=== PATIENT | male | born 1965 | race Caucasian/White ===

== ENCOUNTER 2019-02-08 22:25 | Emergency (ER) | payer BC, OTHER ==
--- NOTE | 2019-02-08 22:42 | Emergency Department Record ---
History of Present Illness - General Chief Complaint: Fall Injury Stated Complaint: FALL Time Seen by Provider: 02/08/19 22:35 Source: Patient - History of Present Illness Initial Comments: Patient was out in his garage backing up when he fell over some equipment. He thinks he may have lost consciousness briefly. He admit to having some beer and marijuana tonight. He is on blood thinners because of a heart attack. He also injured his arm. Complaint: Fall (from standing) - Related Data Home Medications Medication Instructions Recorded Confirmed Last Taken Aspirin 81 mg PO DAILY 02/08/19 02/08/19 02/08/19 Atorvastatin Calcium 80 mg PO QHS 02/08/19 02/08/19 02/08/19 Metoprolol Tartrate 25 mg PO BID 02/08/19 02/08/19 02/08/19 Ranitidine HCl [Zantac] 150 mg PO BID 02/08/19 02/08/19 02/08/19 Ticagrelor [Brilinta] 60 mg PO BID 02/08/19 02/08/19 02/08/19 Allergies Allergy/AdvReac Type Severity Reaction Status Date / Time No Known Drug Allergies Allergy Verified 11/25/15 04:38 Review of Systems Reviewed: No additional complaints except as noted below Constitutional: Reports: As per HPI. Denies: Chills, Fever, Malaise, Night sweats, Weakness, Weight change Eyes: Reports: As per HPI. Denies: Eye discharge, Eye pain, Photophobia, Vision change ENT: Reports: As per HPI. Denies: Congestion, Dental pain, Ear pain, Epistaxis , Hearing loss, Throat pain Respiratory: Reports: As per HPI. Denies: Cough, Dyspnea, Hemoptysis, Stridor, Wheezes Cardiovascular: Reports: As per HPI. Denies: Arrhythmia, Chest pain, Dyspnea on exertion, Edema, Murmurs, Orthopnea, Palpitations, Paroxysmal nocturnal dyspnea, Rheumatic Fever, Syncope Endocrine: Reports: As per HPI. Denies: Fatigue, Heat or cold intolerance, Polydipsia, Polyuria Gastrointestinal: Reports: As per HPI. Denies: Abdominal pain, Constipation, Diarrhea, Hematemesis, Hematochezia, Melena, Nausea, Vomiting Genitourinary: Reports: As per HPI. Denies: Dysuria, Frequency, Hematuria, Incontinence, Retention, Testicular pain, Testicular mass, Urgency Musculoskeletal: Reports: As per HPI. Denies: Arthralgia, Back pain, Gout, Joint swelling, Myalgia, Neck pain Skin: Reports: As per HPI. Denies: Bruising, Change in color, Change in hair/ nails, Lesions, Pruritus, Rash Neurological: Reports: As per HPI. Denies: Abnormal gait, Confusion, Headache, Numbness, Paresthesias, Seizure, Tingling, Tremors, Vertigo, Weakness Psychiatric: Reports: As per HPI. Denies: Anxiety, Auditory hallucinations, Depression, Homicidal thoughts, Suicidal thoughts, Visual hallucinations Hematological/Lymphatic: Reports: As per HPI. Denies: Anemia, Blood Clots, Easy bleeding, Easy bruising, Swollen glands Past Medical History - SOCIAL HISTORY Smoking Status: Current every day smoker - RESPIRATORY Hx Respiratory Disorders: No - CARDIOVASCULAR Hx Cardio Disorders: No - NEURO Hx Neuro Disorders: No - GI Hx GI Disorders: No - Hx Genitourinary Disorders: No - ENDOCRINE Hx Endocrine Disorders: No - MUSCULOSKELETAL Hx Musculoskeletal Disorders: Yes Comment:: herniated discs - PSYCH Hx Psych Problems: No - HEMATOLOGY/ONCOLOGY Hx Hematology/Oncology Disorders: No Family Medical History Hx Heart Disease: Father, Mother *Heart Comment: heart attacks, open heart Physical Exam - General General Appearance: Alert, Oriented x3, Cooperative, No acute distress - Head Head exam: Normal inspection Head exam detail: Abrasion, Contusion (to jaw left side) - Eye Eye exam: Normal appearance, PERRL Pupils: Normal accommodation - ENT ENT exam: Normal exam, Mucous membranes moist, Normal external ear exam, Normal orophraynx, TM's normal bilaterally Ear exam: Normal external inspection. negative: External canal tenderness Nasal Exam: Normal inspection. negative: Discharge, Sinus tenderness Mouth exam: Normal external inspection, Tongue normal Teeth exam: Normal inspection. negative: Dental caries Throat exam: Normal inspection. negative: Tonsillar erythema, Tonsillar exudate - Neck Neck exam: Normal inspection, Full ROM. negative: Lymphadenopathy, Meningismus , Tenderness - Respiratory Respiratory exam: Normal lung sounds bilaterally. negative: Respiratory distress - Cardiovascular Cardiovascular Exam: Regular rate, Normal rhythm, Normal heart sounds - GI/Abdominal GI/Abdominal exam: Soft, Normal bowel sounds. negative: Tenderness - Rectal Rectal exam: Deferred - exam: Deferred - Extremities Extremities exam: Normal inspection, Full ROM, Normal capillary refill, Other ( left forearm tender with bandage over it.). negative: Calf tenderness, Pedal edema, Tenderness - Back Back exam: Reports: Normal inspection, Full ROM. Denies: CVA tenderness (R), CVA tenderness (L), Muscle spasm, Rash noted, Tenderness - Neurological Neurological exam: Alert, CN II-XII intact, Normal gait, Oriented X3, Reflexes normal. negative: Motor sensory deficit - Psychiatric Psychiatric exam: Normal affect, Normal mood - Skin Skin exam: Dry, Intact, Normal color, Warm Course - Reevaluation(s) Reevaluation #1: Cleansed forearm wound which is macerated and contused with no clear area for suturing. Patient prefers no suturing and bandage instead. Results of studies discussed. All questions answered. Ready for DC. 02/09/19 00:17 Medical Decision Making - Management Options MDM Management: No Additional Work-up Planned - Data Complexity MDM Data: Labs Ordered and/or Reviewed, X-Ray Ordered and/or Reviewed (CT head and C spine Negative for acute injury; left forearme negative for acute fracture ) - Lab Data Result diagrams: 02/08/19 22:40 02/08/19 22:40 Disposition Disposition: Discharge Clinical Impression: Alcohol consumption of more than two drinks per day Head injury, acute, with loss of consciousness Qualifiers: Encounter type: initial encounter Qualified Code(s): S06.9X9A - Unspecified intracranial injury with loss of consciousness of unspecified duration, initial encounter Forearm avulsion Qualifiers: Encounter type: initial encounter Laterality: left Qualified Code(s): S51.802A - Unspecified open wound of left forearm, initial encounter Concussion Qualifiers: Encounter type: initial encounter Loss of consciousness presence/duration: with LOC of 30 min or less Qualified Code(s): S06.0X1A - Concussion with loss of consciousness of 30 minutes or less, initial encounter Disposition: Home, Self-Care Condition: (1) Good Instructions: Fall Prevention for Older Adults (ED), Acute Wound Care (ED), Concussion (ED) Additional Instructions: Discontinue alcohol use as you have a concussion. Ice to contusions. Tylenol alternated with ibuprofen as directed as needed for pain. Follow up with PCP as needed. Forms: Patient Portal Access Quality - Quality Measures Quality Measures: N/A - Blood Pressure Screening Does Patient Have Any of the Following: No Blood Pressure Classification: Hypertensive Reading Systolic Measurement: 168 Diastolic Measurement: 95 Screening for High Blood Pressure: < Normal BP, F/U Not Required > [G0837]
[2019-02-08 22:52] LABS: BASO % 0.2 % (0-6); EOS % 2.2 % (0-6); GRAN % 67.5 % (47-80); HEMOGLOBIN 14.3 gm/dl (14.0-18.0); LYMPH % 23.4 % (16-45); MEAN CELL VOLUME 91.5 fl (81-97); MEAN CORPUSCULAR HEMOGLOBIN 30.4 pg (27-33); MEAN CORPUSCULAR HGB CONC 33.3 g/dl (32-36); MEAN PLATELET VOLUME 11.1 fl (7.4-10.4); MONO % 6.7 % (0-9); PLATELET COUNT 184 K/uL (130-400); WHITE BLOOD COUNT W/O DIFF 8.5 K/uL (4.2-12.2)
[2019-02-08 23:04] LABS: BLOOD UREA NITROGEN 14 mg/dL (6-20); CREATININE 0.8 mg/dL (0.7-1.2); EST GLOMERULAR FILTRATION RATE > 60 mL/min; PARTIAL THROMBOPLASTIN TIME 25.4 SECONDS (24.5-39.1); PROTHROMBIN TIME (PATIENT) 10.1 SECONDS (9.5-12.1)
[2019-02-08 23:07] LABS: GLUCOSE,RANDOM 130 mg/dL (74-109)
[2019-02-08 23:08] LABS: ALCOHOL 0.152 g/dL (0-0.010)
[2019-02-09] MEDS ORDERED: Diph,Pert(Acell),Tet Vac 0.5 ML SYR IM ONE (00:19)
--- NOTE | 2019-02-10 13:57 | CT SCAN REPORT ---
EXAM: CT OF THE HEAD WITHOUT CONTRAST HISTORY: FELL IN HIS GARAGE. TECHNIQUE: Noncontrast CT of the head was obtained. FINDINGS: The brain volume is normal. There is no evidence of hemorrhage, mass effect, midline shift, or acute transcortical infarction. No extraaxial fluid collections are seen. The ventricles and basal cisterns are preserved. IMPRESSION: NO ACUTE INTRACRANIAL INJURY. JOB NUMBER: [id number] MTDD
--- NOTE | 2019-02-10 14:00 | RADIOLOGY REPORT ---
EXAM: LEFT FOREARM HISTORY: FALL. TECHNIQUE: Two views of the left forearm were obtained. FINDINGS: No fractures are seen. IMPRESSION: UNREMARKABLE LEFT FOREARM. JOB NUMBER: [id number] MTDD
--- NOTE | 2019-02-10 14:03 | CT SCAN REPORT ---
EXAM: CT OF THE CERVICAL SPINE WITHOUT CONTRAST HISTORY: TRAUMA. TECHNIQUE: Noncontrast CT images of the cervical spine were obtained. There are no prior studies available for comparison. FINDINGS: There is chronic appearing compression deformity of the C6 vertebral body. There is mild superior end plate deformity at C5. No acute fractures are see. There is no evidence of acute malalignment. IMPRESSION: CHRONIC POST TRAUMATIC CHANGES IN THE MID CERVICAL SPINE WITHOUT EVIDENCE OF ACUTE OSSEOUS INJURY OR MALALIGNMENT. JOB NUMBER: [id number] [facility]
== END 2019-02-09 00:29 | disposition home or self-care (01) ==
LOC: ER 22:25
DX: S06.9X1A Unspecified intracranial injury with loss of consciousness of 30 minutes or less, initial encounter (principal); S51.802A Unspecified open wound of left forearm, initial encounter; W01.10XA Fall on same level from slipping, tripping and stumbling with subsequent striking against unspecified object, initial encounter; Y92.008 Other place in unspecified non-institutional (private) residence as the place of occurrence of the external cause; Z72.89 Other problems related to lifestyle; Z79.01 Long term (current) use of anticoagulants; F10.129 Alcohol abuse with intoxication, unspecified; Y90.6 Blood alcohol level of 120-199 mg/100 ml
CPT/HCPCS: 99283; 96372; 99284; 85025; 85730; 85610; 80048; 73090; 72125; 70450; G0480; 80320; 90715